=== PATIENT | female | born 2005 | race African-American/Black ===

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

== ENCOUNTER 2024-05-14 02:36 | Emergency (ER) | payer SELFPAY ==
[2024-05-14] MEDS ORDERED: Ondansetron ODT 4 MG TAB ONE (03:02)
== END 2024-05-14 03:16 | disposition home or self-care (01) ==
LOC: NAV ERS 02:36
DX: R11.2 Nausea with vomiting, unspecified (principal); F17.290 Nicotine dependence, other tobacco product, uncomplicated; Z55.6 Problems related to health literacy
CPT/HCPCS: 99283; Q0162

== ENCOUNTER 2025-02-05 17:02 | Emergency (ER) | payer SELFPAY ==
[2025-02-05 17:51] LABS: Glucose, Urine (Dipstick) Negative (Negative); Leukocyte Trace (Negative); Protein, Urine (Dipstick) 100 mg/dL (Neg-Trace); Specific Gravity, Urine 1.025 (1.005-1.030)
[2025-02-05 17:52] LABS: Pregnancy Test - Urine (BHCG) Negative (Negative); Pregu Control Background? CLEAR/WHITE (CLR/WHITE); Pregu Control Bar Appear? YES (CONTROL BAR)
[2025-02-05 18:01] LABS: Bacteria/HPF 1+ HPF (None Seen); CAUTI Indications for Culture Acute Hematuria; Mucous/LPF 3+ LPF (<2+); RBC/HPF 21-50 HPF (0-3); WBC/HPF 0-3 HPF (0-3)
[2025-02-05 18:02] LABS: Urine Culture Reflex No No
[2025-02-07 01:03] LABS: Chlamydia by PCR, EndoCx Swab DETECTED (NotDetected); GC by PCR, EndoCx Swab Not Detected (NotDetected)
== END 2025-02-05 18:45 | disposition home or self-care (01) ==
LOC: NAV ERS 17:02
DX: N94.6 Dysmenorrhea, unspecified (principal); N83.8 Other noninflammatory disorders of ovary, fallopian tube and broad ligament; F17.290 Nicotine dependence, other tobacco product, uncomplicated
CPT/HCPCS: 81001; 81025; 87491; 87591; 99284